=== PATIENT | female | born 2000 | race American Indian/Alaskan Native ===

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

== ENCOUNTER 2024-06-05 08:48 | Emergency (ER) | payer OTHER, MEDICAID ==
[2024-06-05] MEDS: Sodium Chloride 0.9% 1,000 ML IV SCH (09:27)
[2024-06-05 09:29] LABS: HEMATOCRIT 33.4 % (37.0-47.0); HEMOGLOBIN 9.8 g/dL (12.0-16.0); MEAN CORPUSCULAR HEMOGLOBIN 21.4 pg (27.0-34.0); MEAN CORPUSCULAR HGB CONC 29.3 g/dL (33.0-35.0); MEAN CORPUSCULAR VOLUME 73.1 fL (80-100); PLATELET COUNT,PLT 285 10^3/uL (150-450); RED BLOOD CELL COUNT 4.57 10^6/uL (4.2-5.4); WHITE BLOOD CELL COUNT,WBC 5.7 10^3/uL (5.0-10.0)
[2024-06-05 09:30] LABS: BASOPHILS PERCENT AUTO 0.2 % (0.0-1.0); EOSINOPHILS PERCENT AUTO 1.1 % (1.0-3.0); LYMPHOCYTES PERCENT AUTO 61.6 % (20.5-50.1); MONOCYTES PERCENT AUTO 6.1 % (2-8)
[2024-06-05 09:37] LABS: A/G RATIO 0.8; ALANINE AMINOTRANSFERASE,ALT 66 U/L (14-59); ALBUMIN 3.4 g/dL (3.4-5.0); ALKALINE PHOSPHATASE 103 U/L (46-116); ANION GAP 16.7 mEq/L (7-13); ASPARTATE AMNIOTRANSFERASE,AST 148 U/L (15-37); BILIRUBIN TOTAL 0.4 mg/dL (0.2-1.0); BLOOD UREA NITROGEN,BUN 8 mg/dL (7-18); BUN/CREATININE RATIO 9.8 (No establ ref range); CALCIUM 8.6 mg/dL (8.5-10.1); CARBON DIOXIDE,CO2 23 mmol/L (21-32); CHLORIDE,CL 107 mmol/L (98-107); CREATININE 0.82 mg/dL (0.55-1.02); ETHANOL BLOOD MEDICAL 166 mg/dL (0); GLUCOSE RANDOM 110 mg/dL (70-99); INR 0.9 (0.9-1.2); POTASSIUM,K 3.7 mmol/L (3.5-5.1); PROTEIN TOTAL,TP 7.8 g/dL (6.4-8.2); PROTHROMBIN TIME 9.7 SEC (9.0-12.0); PTT,PARTIAL THROMBOPLSTIN TIME 22.3 SEC (22.0-34.0); SODIUM,NA 143 mmol/L (136-145)
[2024-06-05 09:38] LABS: ESTIMATED GFR 104 mL/min (>=60)
[2024-06-05 09:43] LABS: EOSINOPHILS PERCENT MAN 3 % (1-3); LYMPHOCYTES PERCENT MAN 64 % (20-50); MONOCYTES PERCENT MAN 4 % (2-8); SEG NEUTROPHILS PERCENT MAN 29 % (42-75)
[2024-06-05] MEDS: Folic Acid 1 MG Tab PO ONE (11:50)
[2024-06-05] MEDS: Thiamine 100 MG Tab PO ONE (11:50)
[2024-06-05] MEDS: Iopamidol 612 MG/ML 100 ML Bottle IVPUSH ONE (11:53)
== END 2024-06-05 12:48 | disposition home or self-care (01) ==
LOC: DL.ED 08:48
DX: S20.211A Contusion of right front wall of thorax, initial encounter (principal); S30.1XXA Contusion of abdominal wall, initial encounter; F10.120 Alcohol abuse with intoxication, uncomplicated; Y90.6 Blood alcohol level of 120-199 mg/100 ml; Z79.899 Other long term (current) drug therapy; V43.62XA Car passenger injured in collision with other type car in traffic accident, initial encounter; Y92.410 Unspecified street and highway as the place of occurrence of the external cause
CPT/HCPCS: 36415; 70450; 71260; 72125; 74177; 80053; 80307; 84703; 85025; 85610; 85730; 96360; 96361; 99284; 99285; A9270; J7030; Q9967